=== PATIENT | female | born 1975 ===

== ENCOUNTER 2021-09-05 18:14 | Outpatient (REF) | payer SELFPAY ==
[2021-09-07 09:24] LABS: COVID-19 RT-PCR UVMMC Result Negative (Negative)
== END 2021-09-05 18:15 | disposition home or self-care (01) ==
LOC: LBN 18:14
PROVIDERS: Visit Provider Internal Medicine
DX: Z20.822 Contact with and (suspected) exposure to COVID-19 (principal)
CPT/HCPCS: U0003

== ENCOUNTER 2021-09-10 20:34 | Outpatient (REF) | payer SELFPAY ==
[2021-09-11 21:01] LABS: COVID-19 RT-PCR UVMMC Result Negative (Negative)
== END 2021-09-10 20:35 | disposition home or self-care (01) ==
LOC: LBN 20:34
PROVIDERS: Visit Provider Internal Medicine
DX: Z20.822 Contact with and (suspected) exposure to COVID-19 (principal)
CPT/HCPCS: U0003

== ENCOUNTER 2021-09-12 18:37 | Outpatient (REF) | payer SELFPAY ==
[2021-09-13 20:48] LABS: COVID-19 RT-PCR UVMMC Result Negative (Negative)
== END 2021-09-12 18:38 | disposition home or self-care (01) ==
LOC: LBN 18:37
PROVIDERS: Visit Provider Internal Medicine
DX: Z20.822 Contact with and (suspected) exposure to COVID-19 (principal)
CPT/HCPCS: U0003